=== PATIENT | male | born 2000 | race African-American/Black ===

== ENCOUNTER 2021-10-22 15:32 | Emergency (ER) | payer OTHER ==
[~2021-10-22] VITALS: Ht 175.3 cm; Wt 90.9 kg
[2021-10-22] MEDS ORDERED: HALOPERIDOL 5 MG TABLET PO ONE (16:45)
[2021-10-22] MEDS ORDERED: DiphenhydrAMINE HCL 25 MG CAPSULE PO ONE (16:45)
[2021-10-22] MEDS ORDERED: LORazepam 1 MG TABLET PO ONE (16:45)
[2021-10-22 17:38] LABS: AMPHET/METH SCREEN,URINE NEGATIVE (NEGATIVE); BARBITURATE SCREEN, URINE NEGATIVE (NEGATIVE); BENZODIAZEPINES SCREEN,URINE NEGATIVE (NEGATIVE); CANNABINOID SCREEN,URINE NEGATIVE (NEGATIVE); COCAINE SCREEN,URINE NEGATIVE (NEGATIVE); METHADONE SCREEN, URINE NEGATIVE (NEGATIVE); OPIATE SCREEN,URINE NEGATIVE (NEGATIVE)
[2021-10-22 17:39] LABS: PHENCYCLIDINE SCREEN,URINE NEGATIVE (NEGATIVE)
[2021-10-22 18:04] LABS: BASOPHILS % (AUTO) 0.5 % (0.0-2.0); EOSINOPHILS % (AUTO) 0.5 % (1.0-6.0); HEMATOCRIT 42.2 % (41-53); HEMOGLOBIN 14.3 g/dL (13.5-17.5); LYMPHOCYTES % (AUTO) 16.8 % (22.0-44.0); MEAN CORPUSCULAR HEMOGLOBIN 30.2 pg (26.0-34.0); MEAN CORPUSCULAR VOLUME 89 fL (80-100); MONOCYTES # (AUTO) 0.9 K/uL (0.1-1.0); MONOCYTES % (AUTO) 7.5 % (2.0-9.0); NEUTROPHILS # (AUTO) 8.9 K/uL (1.8-7.7); NEUTROPHILS % (AUTO) 74.7 % (40.0-70.0); PLATELET COUNT (AUTO) 224 K/uL (150-450); RED BLOOD CELL COUNT(AUTO) 4.74 MIL/uL (4.50-5.90); RED CELL DISTRIBUTION WIDTH 13.9 % (11.5-14.5)
[2021-10-22 18:19] LABS: ANION GAP 8 mmol/L (8-16); CALCIUM, TOTAL 9.3 mg/dL (8.8-10.5); CARBON DIOXIDE 28 mmol/L (22-29); CHLORIDE 104 mmol/L (98-107); CREATININE 1.08 mg/dL (0.60-1.30); GLOMERULAR FILTR. RATE CALC > 60 mL/min (>60); GLUCOSE,RANDOM 198 mg/dL (70-110); POTASSIUM 3.8 mmol/L (3.5-5.1); SODIUM SERUM 140 mmol/L (136-145); UREA NITROGEN, BLOOD 15 mg/dL (7-18)
[2021-10-22 18:25] LABS: ALANINE AMINOTRANSFERASE 57 U/L (12-78); ALKALINE PHOSPHATASE 89 U/L (46-116); ASPARTATE AMINOTRANSFERASE 40 U/L (15-37); BILIRUBIN,TOTAL 0.3 mg/dL (0.1-1.0); TOTAL PROTEIN, SERUM 8.1 g/dL (6.4-8.2)
[2021-10-22 18:46] VITALS: BP 116/81
== END 2021-10-22 18:45 | disposition home or self-care (01) ==
LOC: EMS 15:34
DX: F20.9 Schizophrenia, unspecified (principal); F19.10 Other psychoactive substance abuse, uncomplicated; Z76.0 Encounter for issue of repeat prescription; Z88.8 Allergy status to other drugs, medicaments and biological substances
CPT/HCPCS: 36415; 80053; 80307; 85025; 99284; G0480

== ENCOUNTER 2021-10-26 16:17 | Inpatient (IN) | payer MEDICAID, OTHER ==
[~2021-10-26] VITALS: Ht 175.3 cm; Wt 100.9 kg
[2021-10-26 17:47] LABS: BASOPHILS % (AUTO) 0.3 % (0.0-2.0); EOSINOPHILS % (AUTO) 0.1 % (1.0-6.0); HEMATOCRIT 42.1 % (41-53); HEMOGLOBIN 14.3 g/dL (13.5-17.5); LYMPHOCYTES # (AUTO) 1.5 K/uL (1.0-4.8); LYMPHOCYTES % (AUTO) 13.5 % (22.0-44.0); MEAN CORPUSCULAR HEMOGLOBIN 30.2 pg (26.0-34.0); MEAN CORPUSCULAR HGB CONC 33.8 G/dL (31.0-37.0); MEAN CORPUSCULAR VOLUME 89 fL (80-100); MONOCYTES # (AUTO) 0.9 K/uL (0.1-1.0); MONOCYTES % (AUTO) 7.6 % (2.0-9.0); NEUTROPHILS % (AUTO) 78.5 % (40.0-70.0); PLATELET COUNT (AUTO) 240 K/uL (150-450); RED BLOOD CELL COUNT(AUTO) 4.72 MIL/uL (4.50-5.90); RED CELL DISTRIBUTION WIDTH 13.7 % (11.5-14.5)
[2021-10-26 17:52] LABS: COVID AG,FIA SOURCE NASOPHARYNGEAL
[2021-10-26 18:01] LABS: ANION GAP 8 mmol/L (8-16); CALCIUM, TOTAL 9.2 mg/dL (8.8-10.5); CARBON DIOXIDE 28 mmol/L (22-29); CHLORIDE 104 mmol/L (98-107); CREATININE 0.92 mg/dL (0.60-1.30); GLOMERULAR FILTR. RATE CALC > 60 mL/min (>60); GLUCOSE,RANDOM 144 mg/dL (70-110); POTASSIUM 3.7 mmol/L (3.5-5.1); SODIUM SERUM 140 mmol/L (136-145); UREA NITROGEN, BLOOD 13 mg/dL (7-18)
[2021-10-26 18:08] LABS: ALANINE AMINOTRANSFERASE 48 U/L (12-78); ALBUMIN 4.2 g/dL (3.4-5.0); ALKALINE PHOSPHATASE 82 U/L (46-116); ASPARTATE AMINOTRANSFERASE 54 U/L (15-37); BILIRUBIN,TOTAL 0.4 mg/dL (0.1-1.0); TOTAL PROTEIN, SERUM 8.4 g/dL (6.4-8.2)
[2021-10-26 21:10] VITALS: BP 133/80
[2021-10-27 09:01] VITALS: BP 136/95
[2021-10-27] MEDS ORDERED: ALBUTEROL SULFATE HFA 90 MCG/PUFF 8 GM INHALER IH PRN (11:00)
[2021-10-27] MEDS ORDERED: ONDANSETRON HCL 4 MG TABLET PO PRN (11:00)
[2021-10-27] MEDS ORDERED: MAGNESIUM HYDROXIDE SUSPENSION 30 ML UDCUP PO PRN (11:00)
[2021-10-27] MEDS ORDERED: MAG HYDROX/AL HYDROX/SIMETH ES 30 ML SUSPENSION UDCUP PO PRN (11:00)
[2021-10-27] MEDS ORDERED: IBUPROFEN 400 MG TABLET PO PRN (11:00)
[2021-10-27] MEDS ORDERED: ACETAMINOPHEN 325 MG TABLET PO PRN (11:00)
[2021-10-27] MEDS ORDERED: LOPERAMIDE HCL 2 MG CAPSULE PO PRN (11:00)
[2021-10-27] MEDS ORDERED: CloNIDine HCL 0.1 MG TABLET PO PRN (11:00)
[2021-10-27] MEDS ORDERED: DOCUSATE SODIUM 100 MG CAPSULE PO PRN (11:00)
[2021-10-27] MEDS ORDERED: NICOTINE 14 MG/24 HOUR PATCH TD PRN (11:00)
[2021-10-27] MEDS ORDERED: PETROLATUM,WHITE 28 GM JELLY TP PRN (11:00)
[2021-10-27 17:00] VITALS: BP 125/83
[2021-10-27] MEDS: ZOLPIDEM TARTRATE 10 MG TABLET PO PRN (20:24)
[2021-10-27] MEDS: OLANZapine 5 MG TABLET PO SCH (20:24)
[2021-10-28] MEDS: OLANZapine 5 MG TABLET PO SCH ×2 (08:09→20:03)
[2021-10-28 10:30] VITALS: BP 148/95
[2021-10-28 18:00] VITALS: BP 126/84
[2021-10-29 09:00] VITALS: BP 110/79
[2021-10-29] MEDS: OLANZapine 5 MG TABLET PO SCH ×2 (09:00→20:29)
[2021-10-29 16:00] VITALS: BP 151/91
[2021-10-29] MEDS: ZOLPIDEM TARTRATE 10 MG TABLET PO PRN (20:29)
[2021-10-30 08:53] VITALS: BP 133/91
[2021-10-30] MEDS: OLANZapine 5 MG TABLET PO SCH ×2 (09:11→20:24)
[2021-10-30 16:54] VITALS: BP 150/83
[2021-10-30] MEDS: ZOLPIDEM TARTRATE 10 MG TABLET PO PRN (20:24)
[2021-10-31] MEDS: OLANZapine 5 MG TABLET PO SCH ×2 (08:25→20:07)
[2021-10-31 08:56] VITALS: BP 107/57
[2021-10-31 16:28] VITALS: BP 166/65
[2021-11-01 03:03] VITALS: BP 110/65
[2021-11-01 08:00] VITALS: BP 153/93
[2021-11-01 08:52] LABS: COVID AG,FIA SOURCE NASOPHARYNGEAL
[2021-11-01] MEDS: OLANZapine 5 MG TABLET PO SCH ×2 (08:52→20:25)
[2021-11-01 16:13] VITALS: BP 138/71
[2021-11-02 06:52] LABS: CHOL/HDL RATIO 3.4 (4.2-7.3)
[2021-11-02 08:00] VITALS: BP 143/77
[2021-11-02] MEDS: OLANZapine 5 MG TABLET PO SCH (08:07)
[2021-11-02 17:35] VITALS: BP 149/83
[2021-11-02] MEDS: OLANZapine 10 MG TABLET PO SCH (20:15)
[2021-11-02] MEDS: ZOLPIDEM TARTRATE 10 MG TABLET PO PRN (20:15)
[2021-11-03 08:54] VITALS: BP 146/97
[2021-11-03] MEDS: OLANZapine 5 MG TABLET PO SCH (09:38)
[2021-11-03 16:00] VITALS: BP 140/81
[2021-11-03] MEDS: OLANZapine 10 MG TABLET PO SCH (20:05)
[2021-11-04] MEDS: ZOLPIDEM TARTRATE 10 MG TABLET PO PRN ×2 (01:25→20:46)
[2021-11-04 01:29] VITALS: BP 122/64
[2021-11-04] MEDS: OLANZapine 5 MG TABLET PO SCH (09:09)
[2021-11-04 16:36] VITALS: BP 115/82
[2021-11-04] MEDS: OLANZapine 10 MG TABLET PO SCH (20:46)
[2021-11-05 08:00] VITALS: BP 158/90
[2021-11-05] MEDS: OLANZapine 5 MG TABLET PO SCH (08:30)
[2021-11-05 16:13] VITALS: BP 128/71
[2021-11-05] MEDS: LORazepam 2 MG TABLET PO PRN (16:50)
[2021-11-05] MEDS: ZOLPIDEM TARTRATE 10 MG TABLET PO PRN (20:10)
[2021-11-05] MEDS: OLANZapine 10 MG TABLET PO SCH (20:10)
[2021-11-06 08:00] VITALS: BP 113/67
[2021-11-06] MEDS: OLANZapine 5 MG TABLET PO SCH (09:26)
[2021-11-06] MEDS: LORazepam 2 MG TABLET PO PRN (13:00)
[2021-11-06 16:08] VITALS: BP 128/77
[2021-11-06] MEDS: OLANZapine 10 MG TABLET PO SCH (20:09)
[2021-11-07 07:55] VITALS: BP 148/84
[2021-11-07] MEDS: LORazepam 2 MG TABLET PO PRN ×2 (07:59→17:19)
[2021-11-07] MEDS: OLANZapine 10 MG TABLET PO SCH ×2 (07:59→20:03)
[2021-11-07] MEDS: OLANZapine 5 MG TABLET PO SCH (08:06)
[2021-11-07 11:34] VITALS: BP 158/86
[2021-11-07 16:08] VITALS: BP 145/85
[2021-11-08] MEDS: OLANZapine 5 MG TABLET PO SCH (08:18)
[2021-11-08 08:30] VITALS: BP 138/73
[2021-11-08 10:20] LABS: COVID AG,FIA SOURCE NASOPHARYNGEAL
[2021-11-08 12:05] VITALS: BP 139/83
[2021-11-08] MEDS: LORazepam 2 MG TABLET PO PRN (13:57)
[2021-11-08 16:56] VITALS: BP 122/70
[2021-11-08] MEDS: OLANZapine 10 MG TABLET PO SCH (20:25)
[2021-11-09] MEDS: LORazepam 2 MG TABLET PO PRN ×2 (03:19→18:54)
[2021-11-09] MEDS: OLANZapine 5 MG TABLET PO SCH (08:19)
[2021-11-09 09:28] VITALS: BP 155/82
[2021-11-09 16:05] VITALS: BP 152/101
[2021-11-09 18:54] VITALS: BP 149/89
[2021-11-09] MEDS: OLANZapine 10 MG TABLET PO SCH (20:43)
[2021-11-10] MEDS: OLANZapine 5 MG TABLET PO SCH (08:43)
[2021-11-10 09:00] VITALS: BP 151/85
[2021-11-10] MEDS: LORazepam 2 MG TABLET PO PRN (15:54)
[2021-11-10 16:18] VITALS: BP 148/87
[2021-11-10] MEDS: OLANZapine 10 MG TABLET PO SCH (20:34)
[2021-11-11] MEDS: OLANZapine 5 MG TABLET PO SCH (08:16)
[2021-11-11 09:00] VITALS: BP 144/104
[2021-11-11] MEDS ORDERED: TUBERCULIN, PURIFIED PROTEIN DERIVATIVE 5 TU/0.1 ML SYRINGE ID ONE (11:00)
[2021-11-11] MEDS: LORazepam 2 MG TABLET PO PRN ×2 (12:26→16:35)
[2021-11-11 16:27] VITALS: BP 130/79
[2021-11-11] MEDS: OLANZapine 10 MG TABLET PO SCH (20:19)
[2021-11-11] MEDS: ZOLPIDEM TARTRATE 10 MG TABLET PO PRN (20:19)
[2021-11-12 08:05] VITALS: BP 149/91
[2021-11-12 08:08] VITALS: BP 149/91
[2021-11-12] MEDS: OLANZapine 5 MG TABLET PO SCH (09:25)
[2021-11-12 16:00] VITALS: BP 149/78
[2021-11-12] MEDS: ZOLPIDEM TARTRATE 10 MG TABLET PO PRN (20:23)
[2021-11-12] MEDS: OLANZapine 10 MG TABLET PO SCH (20:23)
[2021-11-13 08:00] VITALS: BP 128/68
[2021-11-13] MEDS: OLANZapine 5 MG TABLET PO SCH (09:00)
[2021-11-13 16:07] VITALS: BP 144/82
[2021-11-13] MEDS: QUEtiapine FUMARATE 100 MG TABLET PO PRN (17:00)
[2021-11-13] MEDS: OLANZapine 10 MG TABLET PO SCH (20:29)
[2021-11-13] MEDS: ZOLPIDEM TARTRATE 10 MG TABLET PO PRN (20:48)
[2021-11-14] MEDS: OLANZapine 5 MG TABLET PO SCH (08:21)
[2021-11-14 08:32] LABS: BASOPHILS % (AUTO) 0.6 % (0.0-2.0); EOSINOPHILS % (AUTO) 1.6 % (1.0-6.0); HEMATOCRIT 42.3 % (41-53); HEMOGLOBIN 14.6 g/dL (13.5-17.5); LYMPHOCYTES % (AUTO) 27.6 % (22.0-44.0); MEAN CORPUSCULAR HEMOGLOBIN 30.9 pg (26.0-34.0); MEAN CORPUSCULAR HGB CONC 34.6 G/dL (31.0-37.0); MEAN CORPUSCULAR VOLUME 89 fL (80-100); MONOCYTES # (AUTO) 0.8 K/uL (0.1-1.0); NEUTROPHILS # (AUTO) 4.3 K/uL (1.8-7.7); NEUTROPHILS % (AUTO) 59.2 % (40.0-70.0); PLATELET COUNT (AUTO) 230 K/uL (150-450); RED BLOOD CELL COUNT(AUTO) 4.73 MIL/uL (4.50-5.90); RED CELL DISTRIBUTION WIDTH 13.8 % (11.5-14.5)
[2021-11-14 08:45] VITALS: BP 150/86
[2021-11-14 16:08] VITALS: BP 120/68
[2021-11-14] MEDS: OLANZapine 10 MG TABLET PO SCH (20:26)
[2021-11-15] MEDS: OLANZapine 5 MG TABLET PO SCH (08:23)
[2021-11-15 08:42] LABS: COVID AG,FIA SOURCE NASAL SWAB
[2021-11-15 09:40] VITALS: BP 153/101
[2021-11-15 16:24] VITALS: BP 130/74
[2021-11-15] MEDS: QUEtiapine FUMARATE 100 MG TABLET PO PRN (17:51)
[2021-11-15] MEDS: OLANZapine 10 MG TABLET PO SCH (20:14)
[2021-11-16 08:00] VITALS: BP 147/80
[2021-11-16] MEDS: OLANZapine 5 MG TABLET PO SCH (08:35)
[2021-11-16 16:21] VITALS: BP 140/92
[2021-11-16] MEDS: QUEtiapine FUMARATE 100 MG TABLET PO PRN (16:56)
[2021-11-16] MEDS: OLANZapine 10 MG TABLET PO SCH (20:14)
[2021-11-16] MEDS: ZOLPIDEM TARTRATE 10 MG TABLET PO PRN (20:14)
[2021-11-17 09:09] VITALS: BP 139/88
[2021-11-17] MEDS: OLANZapine 5 MG TABLET PO SCH (09:27)
[2021-11-17] MEDS: LORazepam 2 MG TABLET PO PRN ×2 (15:09→20:01)
[2021-11-17 16:00] VITALS: BP 146/91
[2021-11-17] MEDS: QUEtiapine FUMARATE 100 MG TABLET PO PRN (16:22)
[2021-11-17] MEDS: OLANZapine 10 MG TABLET PO SCH (20:01)
[2021-11-18 08:35] VITALS: BP 119/59
[2021-11-18] MEDS: OLANZapine 5 MG TABLET PO SCH (09:24)
[2021-11-18 16:00] VITALS: BP 142/66
[2021-11-18] MEDS: QUEtiapine FUMARATE 100 MG TABLET PO PRN (17:38)
[2021-11-18] MEDS: LORazepam 2 MG TABLET PO PRN (18:39)
[2021-11-18] MEDS: OLANZapine 10 MG TABLET PO SCH (20:02)
[2021-11-19] MEDS: OLANZapine 5 MG TABLET PO SCH (08:20)
[2021-11-19 08:21] VITALS: BP 126/74
[2021-11-19] MEDS: QUEtiapine FUMARATE 100 MG TABLET PO PRN ×2 (13:11→17:17)
[2021-11-19 16:08] VITALS: BP 137/80
[2021-11-19] MEDS: LORazepam 2 MG TABLET PO PRN (16:18)
[2021-11-19] MEDS: OLANZapine 10 MG TABLET PO SCH (20:14)
[2021-11-19] MEDS: ZOLPIDEM TARTRATE 10 MG TABLET PO PRN (20:14)
[2021-11-20] MEDS: OLANZapine 5 MG TABLET PO SCH (08:19)
[2021-11-20 08:44] VITALS: BP 121/73
[2021-11-20] MEDS: LORazepam 2 MG TABLET PO PRN (13:07)
[2021-11-20 16:00] VITALS: BP 128/74
[2021-11-20] MEDS: OLANZapine 10 MG TABLET PO SCH (20:57)
[2021-11-21] MEDS: OLANZapine 5 MG TABLET PO SCH (08:44)
[2021-11-21] MEDS: LORazepam 2 MG TABLET PO PRN (15:02)
[2021-11-21] MEDS: QUEtiapine FUMARATE 100 MG TABLET PO PRN (16:29)
[2021-11-21 16:34] VITALS: BP 131/88
[2021-11-21] MEDS: OLANZapine 10 MG TABLET PO SCH (20:04)
[2021-11-22] MEDS: OLANZapine 5 MG TABLET PO SCH (09:07)
[2021-11-22 10:35] VITALS: BP 152/98
[2021-11-22 13:09] LABS: COVID AG,FIA SOURCE NASOPHARYNGEAL
[2021-11-22 16:00] VITALS: BP 131/78
[2021-11-22] MEDS: OLANZapine 10 MG TABLET PO SCH (20:26)
[2021-11-23] MEDS: OLANZapine 5 MG TABLET PO SCH (09:05)
[2021-11-23 09:16] VITALS: BP 146/101
[2021-11-23 16:00] VITALS: BP 148/80
[2021-11-23] MEDS: LORazepam 2 MG TABLET PO PRN (17:07)
[2021-11-23] MEDS: OLANZapine 10 MG TABLET PO SCH (20:12)
[2021-11-23] MEDS: QUEtiapine FUMARATE 100 MG TABLET PO PRN (21:02)
[2021-11-24 08:03] VITALS: BP 158/81
[2021-11-24] MEDS: OLANZapine 5 MG TABLET PO SCH (09:51)
[2021-11-24 16:00] VITALS: BP 165/85
[2021-11-24] MEDS: QUEtiapine FUMARATE 100 MG TABLET PO PRN (16:30)
[2021-11-24] MEDS: OLANZapine 10 MG TABLET PO SCH (20:17)
[2021-11-24] MEDS: ZOLPIDEM TARTRATE 10 MG TABLET PO PRN (20:18)
[2021-11-25 00:55] VITALS: BP 148/99
[2021-11-25] MEDS: LORazepam 2 MG TABLET PO PRN (00:58)
[2021-11-25] MEDS: OLANZapine 5 MG TABLET PO SCH (07:55)
[2021-11-25 08:04] VITALS: BP 140/88
[2021-11-25 16:19] VITALS: BP 142/87
[2021-11-25] MEDS: QUEtiapine FUMARATE 100 MG TABLET PO PRN (19:00)
[2021-11-25] MEDS: OLANZapine 10 MG TABLET PO SCH (20:38)
[2021-11-25] MEDS: ZOLPIDEM TARTRATE 10 MG TABLET PO PRN (20:55)
[2021-11-26 08:13] VITALS: BP 124/78
[2021-11-26] MEDS: OLANZapine 5 MG TABLET PO SCH (08:39)
[2021-11-26 16:22] VITALS: BP 137/74
[2021-11-26] MEDS: OLANZapine 10 MG TABLET PO SCH (20:21)
[2021-11-27 08:08] VITALS: BP 166/86
[2021-11-27] MEDS: LORazepam 2 MG TABLET PO PRN (08:10)
[2021-11-27] MEDS: OLANZapine 5 MG TABLET PO SCH (08:11)
[2021-11-27 16:00] VITALS: BP 119/59
[2021-11-27] MEDS: QUEtiapine FUMARATE 100 MG TABLET PO PRN (17:33)
[2021-11-27] MEDS: OLANZapine 10 MG TABLET PO SCH (20:00)
[2021-11-28 08:02] VITALS: BP 148/76
[2021-11-28] MEDS: OLANZapine 5 MG TABLET PO SCH (10:26)
[2021-11-28 16:18] VITALS: BP 137/92
[2021-11-28] MEDS: QUEtiapine FUMARATE 100 MG TABLET PO PRN (16:30)
[2021-11-28] MEDS: OLANZapine 10 MG TABLET PO SCH (20:10)
[2021-11-28] MEDS: ZOLPIDEM TARTRATE 10 MG TABLET PO PRN (20:50)
[2021-11-29 08:27] LABS: COVID AG,FIA SOURCE NASAL SWAB
[2021-11-29] MEDS: LORazepam 2 MG TABLET PO PRN (08:31)
[2021-11-29] MEDS: OLANZapine 5 MG TABLET PO SCH (08:31)
[2021-11-29 16:00] VITALS: BP 133/64
[2021-11-29] MEDS: QUEtiapine FUMARATE 100 MG TABLET PO PRN (18:50)
[2021-11-29] MEDS: OLANZapine 10 MG TABLET PO SCH (20:15)
[2021-11-30] MEDS: OLANZapine 5 MG TABLET PO SCH (07:45)
[2021-11-30 09:13] VITALS: BP 161/99
[2021-11-30 16:21] VITALS: BP 130/79
[2021-11-30] MEDS: QUEtiapine FUMARATE 100 MG TABLET PO PRN (18:00)
[2021-11-30] MEDS: OLANZapine 10 MG TABLET PO SCH (20:00)
[2021-12-01 08:00] VITALS: BP 125/63
[2021-12-01] MEDS: OLANZapine 5 MG TABLET PO SCH (08:48)
[2021-12-01] MEDS: QUEtiapine FUMARATE 100 MG TABLET PO PRN (15:32)
[2021-12-01 16:06] VITALS: BP 143/89
[2021-12-01] MEDS: LORazepam 2 MG TABLET PO PRN (18:43)
[2021-12-01] MEDS: OLANZapine 10 MG TABLET PO SCH (20:27)
[2021-12-02] MEDS: OLANZapine 5 MG TABLET PO SCH (07:54)
[2021-12-02 16:09] VITALS: BP 145/90
[2021-12-02] MEDS: QUEtiapine FUMARATE 100 MG TABLET PO PRN (16:14)
[2021-12-02] MEDS: OLANZapine 10 MG TABLET PO SCH (20:06)
[2021-12-03 08:00] VITALS: BP 118/79
[2021-12-03] MEDS: OLANZapine 5 MG TABLET PO SCH (08:05)
[2021-12-03] MEDS: LORazepam 2 MG TABLET PO PRN ×2 (08:05→15:35)
[2021-12-03] MEDS: QUEtiapine FUMARATE 100 MG TABLET PO PRN (15:35)
[2021-12-03 16:22] VITALS: BP 132/83
[2021-12-03] MEDS: OLANZapine 10 MG TABLET PO SCH (20:19)
[2021-12-04 08:36] VITALS: BP 119/65
[2021-12-04] MEDS: OLANZapine 5 MG TABLET PO SCH (09:35)
[2021-12-04] MEDS: QUEtiapine FUMARATE 100 MG TABLET PO PRN (16:21)
[2021-12-04 16:25] VITALS: BP 145/79
[2021-12-04] MEDS: OLANZapine 10 MG TABLET PO SCH (20:55)
[2021-12-05 08:11] VITALS: BP 109/67
[2021-12-05] MEDS: OLANZapine 5 MG TABLET PO SCH (08:52)
[2021-12-05] MEDS: LORazepam 2 MG TABLET PO PRN (15:53)
[2021-12-05 16:16] VITALS: BP 134/89
[2021-12-05] MEDS: QUEtiapine FUMARATE 100 MG TABLET PO PRN (16:47)
[2021-12-05] MEDS: OLANZapine 10 MG TABLET PO SCH (20:44)
[2021-12-06 08:45] LABS: COVID AG,FIA SOURCE NASAL SWAB
[2021-12-06] MEDS: OLANZapine 5 MG TABLET PO SCH (08:49)
[2021-12-06] MEDS: QUEtiapine FUMARATE 100 MG TABLET PO PRN (15:45)
[2021-12-06] MEDS: LORazepam 2 MG TABLET PO PRN (15:45)
[2021-12-06 16:44] VITALS: BP 127/61
[2021-12-06] MEDS: ZOLPIDEM TARTRATE 10 MG TABLET PO PRN (20:06)
[2021-12-06] MEDS: OLANZapine 10 MG TABLET PO SCH (20:06)
[2021-12-07] MEDS: LORazepam 2 MG TABLET PO PRN (08:09)
[2021-12-07] MEDS: OLANZapine 5 MG TABLET PO SCH (08:09)
[2021-12-07 16:17] VITALS: BP 142/82
[2021-12-07] MEDS: QUEtiapine FUMARATE 100 MG TABLET PO PRN (17:40)
[2021-12-07] MEDS: OLANZapine 10 MG TABLET PO SCH (20:06)
[2021-12-08] MEDS: LORazepam 2 MG TABLET PO PRN ×2 (09:05→15:47)
[2021-12-08] MEDS: OLANZapine 5 MG TABLET PO SCH (09:05)
[2021-12-08] MEDS: QUEtiapine FUMARATE 100 MG TABLET PO PRN (15:47)
[2021-12-08 16:33] VITALS: BP 137/93
[2021-12-08] MEDS: OLANZapine 10 MG TABLET PO SCH (20:08)
[2021-12-09 08:00] VITALS: BP 99/56
[2021-12-09] MEDS: OLANZapine 5 MG TABLET PO SCH (09:28)
[2021-12-09] MEDS: QUEtiapine FUMARATE 100 MG TABLET PO PRN (15:45)
[2021-12-09] MEDS: LORazepam 2 MG TABLET PO PRN (15:45)
[2021-12-09] MEDS ORDERED: TUBERCULIN, PURIFIED PROTEIN DERIVATIVE 5 TU/0.1 ML SYRINGE ID ONE (16:15)
[2021-12-09 17:07] VITALS: BP 133/88
[2021-12-09] MEDS: OLANZapine 10 MG TABLET PO SCH (20:29)
[2021-12-10 08:01] VITALS: BP 128/75
[2021-12-10] MEDS: OLANZapine 5 MG TABLET PO SCH (08:08)
[2021-12-10] MEDS: QUEtiapine FUMARATE 100 MG TABLET PO PRN ×2 (08:08→15:34)
[2021-12-10] MEDS: LORazepam 2 MG TABLET PO PRN (15:34)
[2021-12-10 17:04] VITALS: BP 130/81
[2021-12-10] MEDS: OLANZapine 10 MG TABLET PO SCH (20:21)
[2021-12-11] MEDS: QUEtiapine FUMARATE 100 MG TABLET PO PRN ×2 (07:48→16:19)
[2021-12-11] MEDS: OLANZapine 5 MG TABLET PO SCH (07:48)
[2021-12-11] MEDS: LORazepam 2 MG TABLET PO PRN (07:48)
[2021-12-11 08:00] VITALS: BP 132/73
[2021-12-11 11:14] LABS: COVID AG,FIA SOURCE NASAL SWAB
[2021-12-11 16:04] VITALS: BP 108/72
[2021-12-11] MEDS: OLANZapine 10 MG TABLET PO SCH (20:26)
[2021-12-12 08:00] VITALS: BP 141/84
[2021-12-12] MEDS: OLANZapine 5 MG TABLET PO SCH (08:08)
[2021-12-12] MEDS: QUEtiapine FUMARATE 100 MG TABLET PO PRN ×2 (08:08→16:36)
[2021-12-12] MEDS: LORazepam 2 MG TABLET PO PRN (08:08)
[2021-12-12 16:04] VITALS: BP 130/82
[2021-12-12] MEDS: BACITRACIN 28 GM OINTMENT TP SCH (16:37)
[2021-12-12] MEDS: OLANZapine 10 MG TABLET PO SCH (20:40)
[2021-12-13] MEDS: OLANZapine 5 MG TABLET PO SCH (08:28)
[2021-12-13] MEDS: LORazepam 2 MG TABLET PO PRN (08:28)
[2021-12-13 09:29] VITALS: BP 152/103
[2021-12-13] MEDS: BACITRACIN 28 GM OINTMENT TP SCH ×2 (10:15→16:45)
[2021-12-13] MEDS: QUEtiapine FUMARATE 100 MG TABLET PO PRN (16:45)
[2021-12-13 17:13] VITALS: BP 136/94
[2021-12-13] MEDS: OLANZapine 10 MG TABLET PO SCH (20:24)
[2021-12-14] MEDS: OLANZapine 5 MG TABLET PO SCH (09:20)
[2021-12-14] MEDS: LORazepam 2 MG TABLET PO PRN ×2 (09:20→15:56)
[2021-12-14] MEDS: BACITRACIN 28 GM OINTMENT TP SCH ×2 (09:20→15:54)
[2021-12-14] MEDS: QUEtiapine FUMARATE 100 MG TABLET PO PRN ×2 (09:20→15:56)
[2021-12-14 16:00] VITALS: BP 121/73
[2021-12-14] MEDS: OLANZapine 10 MG TABLET PO SCH (20:36)
[2021-12-15 08:43] VITALS: BP 132/79
[2021-12-15] MEDS: OLANZapine 5 MG TABLET PO SCH (09:51)
[2021-12-15] MEDS: QUEtiapine FUMARATE 100 MG TABLET PO PRN ×2 (09:51→15:49)
[2021-12-15] MEDS: BACITRACIN 28 GM OINTMENT TP SCH ×2 (09:51→17:13)
[2021-12-15] MEDS: LORazepam 2 MG TABLET PO PRN (15:49)
[2021-12-15 16:00] VITALS: BP 139/83
[2021-12-15] MEDS: OLANZapine 10 MG TABLET PO SCH (20:03)
[2021-12-16] MEDS: OLANZapine 5 MG TABLET PO SCH ×3 (09:00→11:03)
[2021-12-16] MEDS: BACITRACIN 28 GM OINTMENT TP SCH ×3 (09:00→16:13)
[2021-12-16] MEDS: LORazepam 2 MG TABLET PO PRN ×3 (09:10→15:49)
[2021-12-16] MEDS: QUEtiapine FUMARATE 100 MG TABLET PO PRN ×3 (09:10→15:49)
[2021-12-16 16:48] VITALS: BP 134/82
[2021-12-16] MEDS: OLANZapine 10 MG TABLET PO SCH (20:08)
[2021-12-17] MEDS: LORazepam 2 MG TABLET PO PRN (08:39)
[2021-12-17] MEDS: OLANZapine 5 MG TABLET PO SCH (08:39)
[2021-12-17] MEDS: BACITRACIN 28 GM OINTMENT TP SCH (09:00)
[2021-12-17] MEDS ORDERED: OLAN10 PO (09:54)
[2021-12-17] MEDS ORDERED: OLAN5TAB52 PO (09:54)
== END 2021-12-17 11:15 | disposition home or self-care (01) | DRG 750 ==
LOC: EMS 16:17 → 3EI 20:00 → 3EC 11-23 21:00
PROVIDERS: ADMIT Psychiatry & Neurology Psychiatry; ATTEND Psychiatry & Neurology Psychiatry
DX: F25.0 Schizoaffective disorder, bipolar type (principal); D72.829 Elevated white blood cell count, unspecified; F17.200 Nicotine dependence, unspecified, uncomplicated; R45.851 Suicidal ideations; Z59.00 Homelessness unspecified; Z91.52 Personal history of nonsuicidal self-harm; Z71.6 Tobacco abuse counseling; Z88.8 Allergy status to other drugs, medicaments and biological substances
CPT/HCPCS: 80053; 80061; 83036; 85025; 99285; G0480

== ENCOUNTER 2022-04-12 00:18 | Emergency (ER) | payer MEDICAID, OTHER ==
[~2022-04-12] VITALS: Ht 170.2 cm; Wt 222.6 kg
[~2022-04-12 00:18] MED LIST: OLAN10 PO; OLAN5TAB52 PO
[2022-04-12 02:32] LABS: AMPHET/METH SCREEN,URINE NEGATIVE (NEGATIVE); BARBITURATE SCREEN, URINE NEGATIVE (NEGATIVE); BENZODIAZEPINES SCREEN,URINE NEGATIVE (NEGATIVE); CANNABINOID SCREEN,URINE NEGATIVE (NEGATIVE); COCAINE SCREEN,URINE NEGATIVE (NEGATIVE); METHADONE SCREEN, URINE NEGATIVE (NEGATIVE); OPIATE SCREEN,URINE NEGATIVE (NEGATIVE)
[2022-04-12 02:33] LABS: PHENCYCLIDINE SCREEN,URINE NEGATIVE (NEGATIVE)
[2022-04-12 02:38] VITALS: BP 150/90
[2022-04-12 03:02] LABS: BASOPHILS % (AUTO) 0.5 % (0.0-2.0); EOSINOPHILS % (AUTO) 0.2 % (1.0-6.0); HEMATOCRIT 41.2 % (41-53); HEMOGLOBIN 14.5 g/dL (13.5-17.5); LYMPHOCYTES # (AUTO) 2.1 K/uL (1.0-4.8); LYMPHOCYTES % (AUTO) 19.8 % (22.0-44.0); MEAN CORPUSCULAR HEMOGLOBIN 30.5 pg (26.0-34.0); MEAN CORPUSCULAR HGB CONC 35.3 G/dL (31.0-37.0); MEAN CORPUSCULAR VOLUME 87 fL (80-100); MONOCYTES # (AUTO) 0.9 K/uL (0.1-1.0); MONOCYTES % (AUTO) 8.7 % (2.0-9.0); NEUTROPHILS # (AUTO) 7.6 K/uL (1.8-7.7); NEUTROPHILS % (AUTO) 70.8 % (40.0-70.0); PLATELET COUNT (AUTO) 240 K/uL (150-450); RED BLOOD CELL COUNT(AUTO) 4.77 MIL/uL (4.50-5.90); RED CELL DISTRIBUTION WIDTH 13.8 % (11.5-14.5)
[2022-04-12 03:11] LABS: ANION GAP 11 mmol/L (8-16); CALCIUM, TOTAL 9.1 mg/dL (8.8-10.5); CARBON DIOXIDE 27 mmol/L (22-29); CHLORIDE 103 mmol/L (98-107); CREATININE 0.94 mg/dL (0.60-1.30); GLOMERULAR FILTR. RATE CALC > 60 mL/min (>60); GLUCOSE,RANDOM 126 mg/dL (70-110); POTASSIUM 3.6 mmol/L (3.5-5.1); SODIUM SERUM 141 mmol/L (136-145); UREA NITROGEN, BLOOD 7 mg/dL (7-18)
[2022-04-12] MEDS ORDERED: LORazepam 1 MG TABLET PO ONE (03:15)
[2022-04-12] MEDS ORDERED: OLANZapine 5 MG TABLET PO ONE (03:15)
[2022-04-12 03:17] LABS: ALANINE AMINOTRANSFERASE 33 U/L (12-78); ALBUMIN 4.2 g/dL (3.4-5.0); ALKALINE PHOSPHATASE 87 U/L (46-116); ASPARTATE AMINOTRANSFERASE 30 U/L (15-37); BILIRUBIN,TOTAL 0.3 mg/dL (0.1-1.0); TOTAL PROTEIN, SERUM 8.2 g/dL (6.4-8.2)
== END 2022-04-12 06:37 | disposition home or self-care (01) ==
LOC: EMS 00:18
DX: F20.9 Schizophrenia, unspecified (principal); F14.10 Cocaine abuse, uncomplicated; Z88.8 Allergy status to other drugs, medicaments and biological substances; Z79.899 Other long term (current) drug therapy
CPT/HCPCS: 36415; 80053; 80307; 85025; 99283; G0480

== ENCOUNTER 2022-07-15 18:54 | Emergency (ER) | payer OTHER ==
[~2022-07-15] VITALS: Ht 180.3 cm; Wt 100.0 kg
[2022-07-15] MEDS ORDERED: HALOPERIDOL 5 MG TABLET PO ONE (19:15)
[2022-07-15 19:31] LABS: COVID AG,FIA SOURCE NASOPHARYNGEAL
[2022-07-15 19:34] LABS: EOSINOPHILS % (AUTO) 0.2 % (1.0-6.0); HEMATOCRIT 41.3 % (41-53); HEMOGLOBIN 14.3 g/dL (13.5-17.5); LYMPHOCYTES # (AUTO) 1.4 K/uL (1.0-4.8); LYMPHOCYTES % (AUTO) 13.5 % (22.0-44.0); MEAN CORPUSCULAR HEMOGLOBIN 30.2 pg (26.0-34.0); MEAN CORPUSCULAR HGB CONC 34.5 G/dL (31.0-37.0); MEAN CORPUSCULAR VOLUME 87 fL (80-100); MONOCYTES # (AUTO) 0.7 K/uL (0.1-1.0); MONOCYTES % (AUTO) 6.1 % (2.0-9.0); NEUTROPHILS # (AUTO) 8.5 K/uL (1.8-7.7); NEUTROPHILS % (AUTO) 79.2 % (40.0-70.0); PLATELET COUNT (AUTO) 287 K/uL (150-450); RED BLOOD CELL COUNT(AUTO) 4.73 MIL/uL (4.50-5.90); RED CELL DISTRIBUTION WIDTH 13.9 % (11.5-14.5)
[2022-07-15 19:42] LABS: ANION GAP 12 mmol/L (8-16); CALCIUM, TOTAL 9.1 mg/dL (8.8-10.5); CARBON DIOXIDE 27 mmol/L (22-29); CHLORIDE 103 mmol/L (98-107); CREATININE 0.99 mg/dL (0.60-1.30); GLOMERULAR FILTR. RATE CALC > 60 mL/min (>60); GLUCOSE,RANDOM 117 mg/dL (70-110); POTASSIUM 3.8 mmol/L (3.5-5.1); SODIUM SERUM 142 mmol/L (136-145); UREA NITROGEN, BLOOD 8 mg/dL (7-18)
[2022-07-15 19:53] LABS: ALANINE AMINOTRANSFERASE 37 U/L (12-78); ALBUMIN 4.1 g/dL (3.4-5.0); ALKALINE PHOSPHATASE 121 U/L (46-116); ASPARTATE AMINOTRANSFERASE 27 U/L (15-37); BILIRUBIN,TOTAL 0.3 mg/dL (0.1-1.0); TOTAL PROTEIN, SERUM 8.2 g/dL (6.4-8.2)
[2022-07-15] MEDS ORDERED: LORazepam 2 MG TABLET PO ONE (23:15)
[2022-07-16 02:15] VITALS: BP 128/77
== END 2022-07-16 03:25 | disposition home or self-care (01) ==
LOC: EMS 19:05
DX: F25.9 Schizoaffective disorder, unspecified (principal); F15.10 Other stimulant abuse, uncomplicated; Z88.8 Allergy status to other drugs, medicaments and biological substances; Z20.822 Contact with and (suspected) exposure to COVID-19
CPT/HCPCS: 99284; 87426; 80053; 85025; 36415; G0480

== ENCOUNTER 2022-08-20 12:41 | Inpatient (IN) | payer OTHER ==
[~2022-08-20] VITALS: Ht 172.7 cm; Wt 101.4 kg
[~2022-08-20 12:41] MED LIST changes: +FentaNYL CITRATE PF 100 MCG/2 ML VIAL IVP ONE; +LIDOCAINE/PF 2% 5 ML VIAL IM ONE; +MIDAZOLAM HCL 2 MG/2 ML VIAL IVP ONE; +ONDANSETRON HCL 4 MG/2 ML VIAL IVP ONE; +PROPOFOL 1% 20 ML VIAL IVP ONE; +SUCCINYLCHOLINE CHLORIDE 20 MG/ML 10 ML VIAL IVP ONE
[2022-08-20] MEDS ORDERED: KETOROLAC TROMETHAMINE 30 MG/ML VIAL IVP ONE (14:15)
[2022-08-20] MEDS ORDERED: ONDANSETRON HCL 4 MG/2 ML VIAL IVP ONE (14:15)
[2022-08-20] MEDS ORDERED: SODIUM CHLORIDE 0.9% 1,000 ML IV ONE (14:15)
[2022-08-20 14:20] LABS: APPEARANCE,URINE CLEAR (CLEAR); BILIRUBIN,URINE NEGATIVE (NEGATIVE); GLUCOSE, URINE (UA) NEGATIVE (NEGATIVE); KETONES,URINE NEGATIVE (NEGATIVE); LEUKOCYTE ESTERASE ,URINE NEGATIVE (NEGATIVE); NITRATE,URINE NEGATIVE (NEGATIVE); OCCULT BLOOD,URINE NEGATIVE (NEGATIVE); PROTEIN,URINE NEGATIVE (NEGATIVE); SPECIFIC GRAVITIY, URINE 1.011 (1.003-1.030); UROBILINOGEN,URINE <=1.0 mg/dL (<=1.0)
[2022-08-20 14:22] LABS: BASOPHILS % (AUTO) 0.2 % (0.0-2.0); EOSINOPHILS % (AUTO) 0.3 % (1.0-6.0); HEMATOCRIT 44.7 % (41-53); HEMOGLOBIN 14.9 g/dL (13.5-17.5); LYMPHOCYTES # (AUTO) 1.5 K/uL (1.0-4.8); LYMPHOCYTES % (AUTO) 8.5 % (22.0-44.0); MEAN CORPUSCULAR HEMOGLOBIN 30.1 pg (26.0-34.0); MEAN CORPUSCULAR HGB CONC 33.4 G/dL (31.0-37.0); MEAN CORPUSCULAR VOLUME 90 fL (80-100); MONOCYTES # (AUTO) 1.7 K/uL (0.1-1.0); MONOCYTES % (AUTO) 9.6 % (2.0-9.0); NEUTROPHILS # (AUTO) 14.4 K/uL (1.8-7.7); NEUTROPHILS % (AUTO) 81.4 % (40.0-70.0); PLATELET COUNT (AUTO) 253 K/uL (150-450); RED BLOOD CELL COUNT(AUTO) 4.95 MIL/uL (4.50-5.90); RED CELL DISTRIBUTION WIDTH 13.9 % (11.5-14.5)
[2022-08-20 14:32] LABS: ANION GAP 5 mmol/L (8-16); CALCIUM, TOTAL 9.4 mg/dL (8.8-10.5); CARBON DIOXIDE 32 mmol/L (22-29); CHLORIDE 103 mmol/L (98-107); CREATININE 0.93 mg/dL (0.60-1.30); GLUCOSE,RANDOM 94 mg/dL (70-110); POTASSIUM 3.7 mmol/L (3.5-5.1); SODIUM SERUM 140 mmol/L (136-145); UREA NITROGEN, BLOOD 7 mg/dL (7-18)
[2022-08-20 14:36] LABS: GLOMERULAR FILTR. RATE CALC > 60 mL/min (>60)
[2022-08-20 14:38] LABS: ALANINE AMINOTRANSFERASE 28 U/L (12-78); ALBUMIN 4.2 g/dL (3.4-5.0); ALKALINE PHOSPHATASE 100 U/L (46-116); ASPARTATE AMINOTRANSFERASE 26 U/L (15-37); BILIRUBIN,TOTAL 0.3 mg/dL (0.1-1.0); LIPASE 69 U/L (73-393); TOTAL PROTEIN, SERUM 8.3 g/dL (6.4-8.2)
[2022-08-20] MEDS ORDERED: HALOPERIDOL 5 MG TABLET PO ONE (15:45)
[2022-08-20] MEDS ORDERED: PIPERACILLIN/TAZO 3.375 GM/D5W 50 ML IV ONE (15:45)
[2022-08-20 16:49] LABS: COVID AG,FIA SOURCE NASOPHARYNGEAL
[2022-08-20] MEDS ORDERED: MORPHINE SULFATE 4 MG/ML SYRINGE IVP PRN (18:30)
[2022-08-20] MEDS ORDERED: ONDANSETRON HCL 4 MG/2 ML VIAL IVP PRN ×2 (18:30→19:45)
[2022-08-20] MEDS ORDERED: BUPIVACAINE 0.25%/EPI 1:200,000/PF 10 ML VIAL ONE (19:09)
[2022-08-20] MEDS ORDERED: SODIUM CHLORIDE 0.9% 1,000 ML ONE (19:09)
[2022-08-20] MEDS ORDERED: ACETAMINOPHEN 325 MG TABLET PO PRN (19:45)
[2022-08-20] MEDS ORDERED: MORPHINE SULFATE 10 MG/ML VIAL IVP PRN (19:45)
[2022-08-20] MEDS ORDERED: RINGERS SOLUTION,LACTATED 1,000 ML IV ONE (19:52)
[2022-08-20] MEDS ORDERED: FentaNYL CITRATE PF 100 MCG/2 ML VIAL IVP PRN (20:00)
[2022-08-20] MEDS ORDERED: HYDROmorphone 2 MG/ML VIAL IVP PRN (20:00)
[2022-08-20] MEDS ORDERED: OXYGEN THERAPY IH SCH (20:00)
[2022-08-20] MEDS ORDERED: BUPIVACAINE HCL/PF 0.25% 30 ML VIAL PERC ONE (20:20)
[2022-08-20] MEDS ORDERED: SUGAMMADEX SODIUM 200 MG/2 ML VIAL IVP ONE (20:33)
[2022-08-20 22:01] VITALS: BP 129/77
[2022-08-20] MEDS ORDERED: MORPHINE SULFATE 2 MG/ML SYRINGE IVP PRN (22:03)
[2022-08-20] MEDS: RINGERS SOLUTION,LACTATED 1,000 ML IV SCH (22:07)
[2022-08-20] MEDS ORDERED: SODIUM CHLORIDE 0.9% 500 ML IV ONE (22:14)
[2022-08-21] MEDS: PIPERACILLIN/TAZO 3.375 GM/D5W 50 ML IV SCH ×3 (00:40→12:00)
[2022-08-21 04:00] VITALS: BP 139/79
[2022-08-21] MEDS: RINGERS SOLUTION,LACTATED 1,000 ML IV SCH (05:45)
[2022-08-21 08:06] VITALS: BP 149/81
[2022-08-21] MEDS ORDERED: AMOX1TAB16 PO (09:48)
[2022-08-22] MEDS ORDERED: HEPARIN SODIUM,PORCINE 5,000 UNITS/ML VIAL SQ SCH
== END 2022-08-22 00:27 | disposition home or self-care (01) | DRG 710 ==
LOC: EMS 12:43 → 6S 21:43
PROVIDERS: ADMIT Internal Medicine; ATTEND Internal Medicine
PROC: 0DTJ4ZZ Resection of Appendix, Percutaneous Endoscopic Approach (ICD-10-PCS; principal; 2022-08-20 19:30)
DX: A41.9 Sepsis, unspecified organism (principal); F25.9 Schizoaffective disorder, unspecified; K35.80 Unspecified acute appendicitis; Z20.822 Contact with and (suspected) exposure to COVID-19; Z88.8 Allergy status to other drugs, medicaments and biological substances
CPT/HCPCS: 74176; 80053; 81003; 83605; 83690; 85025; 87040; 87081; 99285; J0330; J1885; J2250; J2270; J2405; J2543; J2704; J3010; J3490; J7030; J7040; J7120; Q9967

== ENCOUNTER 2023-06-06 13:27 | Emergency (ER) | payer OTHER ==
[~2023-06-06] VITALS: Ht 180.3 cm; Wt 97.7 kg
[~2023-06-06 13:27] MED LIST changes: +AMOX1TAB16 PO; -FentaNYL CITRATE PF 100 MCG/2 ML VIAL IVP ONE; -LIDOCAINE/PF 2% 5 ML VIAL IM ONE; -MIDAZOLAM HCL 2 MG/2 ML VIAL IVP ONE; -ONDANSETRON HCL 4 MG/2 ML VIAL IVP ONE; -PROPOFOL 1% 20 ML VIAL IVP ONE; -SUCCINYLCHOLINE CHLORIDE 20 MG/ML 10 ML VIAL IVP ONE
[2023-06-06] MEDS ORDERED: PALI234D IM (13:30)
[2023-06-06] MEDS ORDERED: CLONIDINE PO (13:30)
[2023-06-06 13:31] VITALS: TEMP 98.5
[2023-06-06 15:49] LABS: BASOPHILS % (AUTO) 0.5 % (0.0-2.0); HEMATOCRIT 42.9 % (41-53); HEMOGLOBIN 14.4 g/dL (13.5-17.5); LYMPHOCYTES # (AUTO) 2.2 K/uL (1.0-4.8); LYMPHOCYTES % (AUTO) 24.6 % (22.0-44.0); MEAN CORPUSCULAR HEMOGLOBIN 30.3 pg (26.0-34.0); MEAN CORPUSCULAR HGB CONC 33.7 G/dL (31.0-37.0); MEAN CORPUSCULAR VOLUME 90 fL (80-100); MONOCYTES # (AUTO) 0.7 K/uL (0.1-1.0); MONOCYTES % (AUTO) 7.7 % (2.0-9.0); NEUTROPHILS # (AUTO) 5.8 K/uL (1.8-7.7); NEUTROPHILS % (AUTO) 65.2 % (40.0-70.0); PLATELET COUNT (AUTO) 282 K/uL (150-450); RED BLOOD CELL COUNT(AUTO) 4.76 MIL/uL (4.50-5.90); RED CELL DISTRIBUTION WIDTH 14.2 % (11.5-14.5)
[2023-06-06 15:56] LABS: ANION GAP 9 mmol/L (8-16); CALCIUM, TOTAL 9.3 mg/dL (8.8-10.5); CARBON DIOXIDE 29 mmol/L (22-29); CHLORIDE 101 mmol/L (98-107); GLOMERULAR FILTR. RATE CALC > 60 mL/min (>60); GLUCOSE,RANDOM 107 mg/dL (70-110); POTASSIUM 3.7 mmol/L (3.5-5.1); SODIUM SERUM 139 mmol/L (136-145)
[2023-06-06 16:02] LABS: ALANINE AMINOTRANSFERASE 29 U/L (12-78); ALBUMIN 4.2 g/dL (3.4-5.0); ALKALINE PHOSPHATASE 91 U/L (46-116); ASPARTATE AMINOTRANSFERASE 31 U/L (15-37); BILIRUBIN,TOTAL 0.3 mg/dL (0.1-1.0); TOTAL PROTEIN, SERUM 8.1 g/dL (6.4-8.2)
[2023-06-06 16:57] LABS: COVID AG,FIA SOURCE NASOPHARYNGEAL
[2023-06-06 18:07] LABS: AMPHET/METH SCREEN,URINE NEGATIVE (NEGATIVE); BARBITURATE SCREEN, URINE NEGATIVE (NEGATIVE); BENZODIAZEPINES SCREEN,URINE NEGATIVE (NEGATIVE); CANNABINOID SCREEN,URINE NEGATIVE (NEGATIVE); COCAINE SCREEN,URINE NEGATIVE (NEGATIVE); METHADONE SCREEN, URINE NEGATIVE (NEGATIVE); OPIATE SCREEN,URINE NEGATIVE (NEGATIVE); PHENCYCLIDINE SCREEN,URINE NEGATIVE (NEGATIVE)
[2023-06-06 18:19] VITALS: BP 117/82; PULSE 77; RESP 18
== END 2023-06-06 18:19 | disposition home or self-care (01) ==
LOC: EMS 13:31
DX: F25.0 Schizoaffective disorder, bipolar type (principal); F12.90 Cannabis use, unspecified, uncomplicated; Z88.8 Allergy status to other drugs, medicaments and biological substances; Z20.822 Contact with and (suspected) exposure to COVID-19
CPT/HCPCS: 99285; 87426; 80053; 85025; 36415; 80307; G0480

== ENCOUNTER 2023-08-03 05:46 | Emergency (ER) | payer OTHER ==
[~2023-08-03] VITALS: Ht 175.3 cm; Wt 91.0 kg
[~2023-08-03 05:46] MED LIST changes: -AMOX1TAB16 PO; +CLONIDINE PO; -OLAN5TAB52 PO; +PALI234D IM
[2023-08-03 06:03] VITALS: TEMP 98.7
[2023-08-03 06:48] LABS: BASOPHILS % (AUTO) 0.7 % (0.0-2.0); EOSINOPHILS % (AUTO) 1.9 % (1.0-6.0); HEMATOCRIT 40.8 % (41-53); HEMOGLOBIN 13.9 g/dL (13.5-17.5); LYMPHOCYTES # (AUTO) 2.1 K/uL (1.0-4.8); LYMPHOCYTES % (AUTO) 18.8 % (22.0-44.0); MEAN CORPUSCULAR HEMOGLOBIN 30.6 pg (26.0-34.0); MEAN CORPUSCULAR HGB CONC 34.1 G/dL (31.0-37.0); MEAN CORPUSCULAR VOLUME 90 fL (80-100); MONOCYTES # (AUTO) 0.9 K/uL (0.1-1.0); MONOCYTES % (AUTO) 7.9 % (2.0-9.0); NEUTROPHILS # (AUTO) 7.9 K/uL (1.8-7.7); NEUTROPHILS % (AUTO) 70.7 % (40.0-70.0); PLATELET COUNT (AUTO) 267 K/uL (150-450); RED BLOOD CELL COUNT(AUTO) 4.56 MIL/uL (4.50-5.90); WHITE BLOOD COUNT (AUTO) 11.2 K/uL (4.5-11.0)
[2023-08-03 07:08] LABS: ALCOHOL, URINE DRUG SCREEN NEGATIVE (NEGATIVE); AMPHET/METH SCREEN,URINE NEGATIVE (NEGATIVE); BARBITURATE SCREEN, URINE NEGATIVE (NEGATIVE); BENZODIAZEPINES SCREEN,URINE NEGATIVE (NEGATIVE); CANNABINOID SCREEN,URINE NEGATIVE (NEGATIVE); COCAINE SCREEN,URINE NEGATIVE (NEGATIVE); METHADONE SCREEN, URINE NEGATIVE (NEGATIVE); OPIATE SCREEN,URINE NEGATIVE (NEGATIVE); PHENCYCLIDINE SCREEN,URINE NEGATIVE (NEGATIVE)
[2023-08-03 07:11] LABS: ALCOHOL, BLOOD (SERUM) < 3 mg/dL (0-10)
[2023-08-03 07:13] LABS: ANION GAP 10 mmol/L (8-16); CARBON DIOXIDE 28 mmol/L (22-29); CHLORIDE 100 mmol/L (98-107); CREATININE 0.84 mg/dL (0.60-1.30); GLOMERULAR FILTR. RATE CALC > 60 mL/min (>60); GLUCOSE,RANDOM 103 mg/dL (70-110); POTASSIUM 3.6 mmol/L (3.5-5.1); SODIUM SERUM 138 mmol/L (136-145); UREA NITROGEN, BLOOD 7 mg/dL (7-18)
[2023-08-03 07:19] LABS: ALANINE AMINOTRANSFERASE 16 U/L (12-78); ALBUMIN 4.1 g/dL (3.4-5.0); ALKALINE PHOSPHATASE 96 U/L (46-116); ASPARTATE AMINOTRANSFERASE 37 U/L (15-37); BILIRUBIN,TOTAL 0.4 mg/dL (0.1-1.0)
[2023-08-03] MEDS ORDERED: CARB1DRO24 OU (08:01)
[2023-08-03 08:17] VITALS: BP 146/88; PULSE 89; RESP 17
== END 2023-08-03 08:21 | disposition home or self-care (01) ==
LOC: EMS 05:47
DX: H10.13 Acute atopic conjunctivitis, bilateral (principal); F12.20 Cannabis dependence, uncomplicated; F20.9 Schizophrenia, unspecified; Z88.8 Allergy status to other drugs, medicaments and biological substances
CPT/HCPCS: 99283; 80053; 85025; 36415; 80307; G0480

== ENCOUNTER 2024-01-13 13:56 | Inpatient (IN) | payer MEDICAID ==
[~2024-01-13 13:56] MED LIST changes: +CARB1DRO24 OU
[2024-01-13] MEDS ORDERED: HALOPERIDOL 5 MG TABLET PO PRN (17:30)
[2024-01-13] MEDS ORDERED: CLON0.1T2 PO (17:37)
[2024-01-13] MEDS ORDERED: OLAN10TA74 PO (17:37)
[2024-01-13 18:01] VITALS: BP 142/78; PULSE 99; RESP 18; TEMP 98; O2SAT 98
[2024-01-13] MEDS ORDERED: INFLUENZA VIRUS VACCINE QVS 2023-24 (6MO+)/PF 60 MCG/0.5 ML SYRINGE IM. ONE (18:45)
[2024-01-13 19:44] VITALS: BP 139/80; RESP 18; TEMP 98.2
[2024-01-14] MEDS ORDERED: MAG HYDROX/ALUMINUM HYD/SIMETH ES 30 ML SUSPENSION UDCUP PO PRN (06:45)
[2024-01-14] MEDS ORDERED: OMEPRAZOLE 20 MG CAPSULE PO PRN (06:45)
[2024-01-14] MEDS ORDERED: ONDANSETRON HCL 4 MG TABLET PO PRN (06:45)
[2024-01-14] MEDS ORDERED: ACETAMINOPHEN 325 MG TABLET PO PRN (06:45)
[2024-01-14] MEDS ORDERED: BENZOCAINE/MENTHOL LOZENGE PO PRN (06:45)
[2024-01-14] MEDS ORDERED: PETROLATUM,WHITE 28 GM JELLY TP PRN (06:45)
[2024-01-14] MEDS ORDERED: LOPERAMIDE HCL 2 MG CAPSULE PO PRN (06:45)
[2024-01-14] MEDS ORDERED: BACITRACIN 28 GM OINTMENT TP PRN (06:45)
[2024-01-14] MEDS ORDERED: IBUPROFEN 600 MG TABLET PO PRN (06:45)
[2024-01-14] MEDS ORDERED: ALBUTEROL SULFATE HFA 90 MCG/PUFF 8 GM INHALER IH PRN (06:45)
[2024-01-14] MEDS ORDERED: DOCUSATE SODIUM 100 MG CAPSULE PO PRN (06:45)
[2024-01-14] MEDS ORDERED: CloNIDine HCL 0.1 MG TABLET PO PRN (06:45)
[2024-01-14] MEDS ORDERED: MAGNESIUM HYDROXIDE SUSPENSION 30 ML UDCUP PO PRN (06:45)
[2024-01-14 08:24] VITALS: RESP 18
[2024-01-14] MEDS: NICOTINE 14 MG/24 HOUR PATCH TD SCH (08:39)
[2024-01-14] MEDS: LORazepam 2 MG TABLET PO PRN (16:11)
[2024-01-14] MEDS: DIVALPROEX SODIUM 500 MG DR TABLET PO SCH (16:11)
[2024-01-14] MEDS: OLANZapine 5 MG TABLET PO SCH (20:43)
[2024-01-14] MEDS: ZOLPIDEM TARTRATE 10 MG TABLET PO PRN (20:43)
[2024-01-14 22:38] VITALS: BP 116/62; PULSE 98; RESP 18; TEMP 97.8
[2024-01-15 08:45] VITALS: BP 137/74; PULSE 91; RESP 17; TEMP 97.6; O2SAT 100
[2024-01-15 21:02] VITALS: BP 144/76; PULSE 102; RESP 20; TEMP 98.2; O2SAT 100
[2024-01-16 08:12] LABS: APPEARANCE,URINE HAZY (CLEAR); BILIRUBIN,URINE NEGATIVE (NEGATIVE); COLOR,URINE LIGHT YELLOW (YELLOW); GLUCOSE, URINE (UA) NEGATIVE (NEGATIVE); KETONES,URINE TRACE mg/dL (NEGATIVE); LEUKOCYTE ESTERASE ,URINE NEGATIVE (NEGATIVE); NITRATE,URINE NEGATIVE (NEGATIVE); OCCULT BLOOD,URINE NEGATIVE (NEGATIVE); PH,URINE 7.5 (5.0-8.0); PH,URINE DRUG SCREEN 7.5 (5.0-8.0); PROTEIN,URINE NEGATIVE (NEGATIVE); SPECIFIC GRAVITIY, URINE 1.022 (1.003-1.030); UROBILINOGEN,URINE <=1.0 mg/dL (<=1.0)
[2024-01-16 08:19] LABS: ALCOHOL, URINE DRUG SCREEN NEGATIVE (NEGATIVE); AMPHET/METH SCREEN,URINE NEGATIVE (NEGATIVE); BARBITURATE SCREEN, URINE NEGATIVE (NEGATIVE); BENZODIAZEPINES SCREEN,URINE NEGATIVE (NEGATIVE); CANNABINOID SCREEN,URINE NEGATIVE (NEGATIVE); COCAINE SCREEN,URINE NEGATIVE (NEGATIVE); METHADONE SCREEN, URINE NEGATIVE (NEGATIVE); OPIATE SCREEN,URINE NEGATIVE (NEGATIVE); PHENCYCLIDINE SCREEN,URINE NEGATIVE (NEGATIVE)
[2024-01-16] MEDS ORDERED: DIVA-112 PO (15:11)
[2024-01-16] MEDS ORDERED: OLAN5TAB52 PO (15:13)
== END 2024-01-16 18:41 | disposition home or self-care (01) | DRG 750 ==
LOC: B3A 17:35
PROVIDERS: ADMIT Psychiatry & Neurology Psychiatry; ATTEND Psychiatry & Neurology Psychiatry
DX: F25.9 Schizoaffective disorder, unspecified (principal); F10.90 Alcohol use, unspecified, uncomplicated; F32.A Depression, unspecified; F41.9 Anxiety disorder, unspecified; G47.00 Insomnia, unspecified; K59.00 Constipation, unspecified; F12.90 Cannabis use, unspecified, uncomplicated; Z88.8 Allergy status to other drugs, medicaments and biological substances; Z79.899 Other long term (current) drug therapy
CPT/HCPCS: 80307; 81003

== ENCOUNTER 2024-03-28 16:00 | Inpatient (IN) | payer MEDICAID, OTHER ==
[~2024-03-28] VITALS: Ht 175.3 cm; Wt 107.5 kg
[~2024-03-28 16:00] MED LIST changes: -CARB1DRO24 OU; -CLONIDINE PO; +DIVA-112 PO; -OLAN10 PO; +OLAN5TAB52 PO; -PALI234D IM
[2024-03-28 16:54] LABS: COVID AG,FIA SOURCE NASAL SWAB
[2024-03-28 16:57] LABS: BASOPHILS % (AUTO) 0.7 % (0.0-2.0); EOSINOPHILS % (AUTO) 4.3 % (1.0-6.0); HEMOGLOBIN 14.4 g/dL (13.5-17.5); LYMPHOCYTES # (AUTO) 2.8 K/uL (1.0-4.8); LYMPHOCYTES % (AUTO) 30.6 % (22.0-44.0); MEAN CORPUSCULAR HEMOGLOBIN 30.7 pg (26.0-34.0); MEAN CORPUSCULAR HGB CONC 34.2 G/dL (31.0-37.0); MEAN CORPUSCULAR VOLUME 90 fL (80-100); MONOCYTES # (AUTO) 0.8 K/uL (0.1-1.0); MONOCYTES % (AUTO) 9.2 % (2.0-9.0); NEUTROPHILS % (AUTO) 55.2 % (40.0-70.0); PLATELET COUNT (AUTO) 261 K/uL (150-450); RED BLOOD CELL COUNT(AUTO) 4.68 MIL/uL (4.50-5.90); RED CELL DISTRIBUTION WIDTH 13.9 % (11.5-14.5)
[2024-03-28 17:06] LABS: ANION GAP 8 mmol/L (8-16); CALCIUM, TOTAL 8.7 mg/dL (8.8-10.5); CARBON DIOXIDE 28 mmol/L (22-29); CHLORIDE 103 mmol/L (98-107); CREATININE 1.06 mg/dL (0.60-1.30); GLOMERULAR FILTR. RATE CALC > 60 mL/min (>60); GLUCOSE,RANDOM 144 mg/dL (70-110); POTASSIUM 3.8 mmol/L (3.5-5.1); SODIUM SERUM 139 mmol/L (136-145); UREA NITROGEN, BLOOD 11 mg/dL (7-18)
[2024-03-28 17:10] LABS: SARS-COV2 (COVID) ANTIGEN,FIA Negative (Negative)
[2024-03-28 17:11] LABS: ALANINE AMINOTRANSFERASE 35 U/L (12-78); ALBUMIN 3.9 g/dL (3.4-5.0); ALKALINE PHOSPHATASE 86 U/L (46-116); ASPARTATE AMINOTRANSFERASE 34 U/L (15-37); BILIRUBIN,TOTAL 0.2 mg/dL (0.1-1.0)
[2024-03-28 17:40] LABS: ALCOHOL, BLOOD (SERUM) < 3 mg/dL (0-10)
[2024-03-28 18:26] LABS: ALCOHOL, URINE DRUG SCREEN NEGATIVE (NEGATIVE); AMPHET/METH SCREEN,URINE NEGATIVE (NEGATIVE); BARBITURATE SCREEN, URINE NEGATIVE (NEGATIVE); BENZODIAZEPINES SCREEN,URINE NEGATIVE (NEGATIVE); CANNABINOID SCREEN,URINE NEGATIVE (NEGATIVE); COCAINE SCREEN,URINE NEGATIVE (NEGATIVE); METHADONE SCREEN, URINE NEGATIVE (NEGATIVE); OPIATE SCREEN,URINE NEGATIVE (NEGATIVE); PHENCYCLIDINE SCREEN,URINE NEGATIVE (NEGATIVE)
[2024-03-28] MEDS: HALOPERIDOL LACTATE 5 MG/ML VIAL IM ONE (19:03)
[2024-03-28] MEDS: LORazepam 2 MG/ML VIAL IM ONE (19:03)
[2024-03-29] MEDS ORDERED: HALOPERIDOL 5 MG TABLET PO PRN (05:00)
[2024-03-29] MEDS ORDERED: ZOLPIDEM TARTRATE 10 MG TABLET PO PRN (05:00)
[2024-03-29 05:41] VITALS: BP 135/74; PULSE 83; RESP 17; TEMP 98.7; O2SAT 96
[2024-03-29] MEDS ORDERED: DOCUSATE SODIUM 100 MG CAPSULE PO PRN (06:00)
[2024-03-29] MEDS ORDERED: LOPERAMIDE HCL 2 MG CAPSULE PO PRN (06:00)
[2024-03-29] MEDS ORDERED: ALBUTEROL SULFATE HFA 90 MCG/PUFF 8 GM INHALER IH PRN (06:00)
[2024-03-29] MEDS ORDERED: ACETAMINOPHEN 325 MG TABLET PO PRN (06:00)
[2024-03-29] MEDS ORDERED: CloNIDine HCL 0.1 MG TABLET PO PRN (06:00)
[2024-03-29] MEDS ORDERED: OMEPRAZOLE 20 MG CAPSULE PO PRN (06:00)
[2024-03-29] MEDS ORDERED: IBUPROFEN 600 MG TABLET PO PRN (06:00)
[2024-03-29] MEDS ORDERED: BACITRACIN 28 GM OINTMENT TP PRN (06:00)
[2024-03-29] MEDS ORDERED: MAG HYDROX/ALUMINUM HYD/SIMETH ES 30 ML SUSPENSION UDCUP PO PRN (06:00)
[2024-03-29] MEDS ORDERED: ONDANSETRON HCL 4 MG TABLET PO PRN (06:00)
[2024-03-29] MEDS ORDERED: MAGNESIUM HYDROXIDE SUSPENSION 30 ML UDCUP PO PRN (06:00)
[2024-03-29] MEDS ORDERED: PETROLATUM,WHITE 28 GM JELLY TP PRN (06:00)
[2024-03-29] MEDS ORDERED: BENZOCAINE/MENTHOL LOZENGE PO PRN (06:00)
[2024-03-29 08:36] VITALS: BP 115/61; PULSE 64; RESP 18; TEMP 97.4; O2SAT 97
[2024-03-29] MEDS ORDERED: SERT-158 PO (09:17)
[2024-03-29 20:36] VITALS: BP 127/70; PULSE 88; TEMP 97.3; O2SAT 94
[2024-03-30] MEDS: LORazepam 2 MG TABLET PO PRN (08:12)
[2024-03-30 08:29] VITALS: BP 133/77; PULSE 80; RESP 18; TEMP 98.5; O2SAT 94
[2024-03-30] MEDS: DIVALPROEX SODIUM 500 MG DR TABLET PO SCH (16:02)
[2024-03-30] MEDS: OLANZapine 10 MG TABLET PO SCH (20:03)
[2024-03-30 20:11] VITALS: RESP 2
[2024-03-31] MEDS: SERTRALINE HCL 50 MG TABLET PO SCH (08:08)
[2024-03-31 08:52] VITALS: BP 126/94; PULSE 67; RESP 18; TEMP 97.8; O2SAT 97
[2024-03-31 20:53] VITALS: BP 125/78; PULSE 93; RESP 18; TEMP 98.4; O2SAT 92
[2024-04-01 08:31] VITALS: BP 102/61; PULSE 74; RESP 16; TEMP 97.3; O2SAT 95
[2024-04-01 20:38] VITALS: BP 124/69; PULSE 91; TEMP 98.2; O2SAT 96
[2024-04-02 08:14] VITALS: RESP 18
== END 2024-04-02 16:15 | disposition home or self-care (01) | DRG 750 ==
LOC: EMS 16:00 → B3A 03-29 03:34
PROVIDERS: ADMIT Psychiatry & Neurology Psychiatry; ATTEND Psychiatry & Neurology Psychiatry
DX: F20.9 Schizophrenia, unspecified (principal); R45.851 Suicidal ideations; F41.9 Anxiety disorder, unspecified; Z20.822 Contact with and (suspected) exposure to COVID-19; K59.00 Constipation, unspecified; I10 Essential (primary) hypertension; G47.00 Insomnia, unspecified; F10.930 Alcohol use, unspecified with withdrawal, uncomplicated
CPT/HCPCS: 80053; 80307; 85025; 99291; G0480; J1630; J2060

== ENCOUNTER 2024-04-04 17:33 | Emergency (ER) | payer MEDICAID, OTHER ==
[~2024-04-04] VITALS: Ht 177.8 cm; Wt 97.7 kg
[~2024-04-04 17:33] MED LIST changes: +SERT-158 PO
[2024-04-04 17:51] VITALS: TEMP 96.6
[2024-04-04 20:19] LABS: ALCOHOL, URINE DRUG SCREEN NEGATIVE (NEGATIVE); AMPHET/METH SCREEN,URINE NEGATIVE (NEGATIVE); BARBITURATE SCREEN, URINE NEGATIVE (NEGATIVE); BENZODIAZEPINES SCREEN,URINE NEGATIVE (NEGATIVE); CANNABINOID SCREEN,URINE NEGATIVE (NEGATIVE); COCAINE SCREEN,URINE NEGATIVE (NEGATIVE); METHADONE SCREEN, URINE NEGATIVE (NEGATIVE); OPIATE SCREEN,URINE NEGATIVE (NEGATIVE); PHENCYCLIDINE SCREEN,URINE NEGATIVE (NEGATIVE)
[2024-04-04 20:25] LABS: BASOPHILS % (AUTO) 0.6 % (0.0-2.0); EOSINOPHILS % (AUTO) 1.5 % (1.0-6.0); HEMATOCRIT 42.9 % (41-53); HEMOGLOBIN 14.5 g/dL (13.5-17.5); LYMPHOCYTES # (AUTO) 2.5 K/uL (1.0-4.8); LYMPHOCYTES % (AUTO) 21.7 % (22.0-44.0); MEAN CORPUSCULAR HEMOGLOBIN 30.3 pg (26.0-34.0); MEAN CORPUSCULAR HGB CONC 33.7 G/dL (31.0-37.0); MEAN CORPUSCULAR VOLUME 90 fL (80-100); MONOCYTES % (AUTO) 8.5 % (2.0-9.0); NEUTROPHILS % (AUTO) 67.7 % (40.0-70.0); PLATELET COUNT (AUTO) 254 K/uL (150-450); RED BLOOD CELL COUNT(AUTO) 4.77 MIL/uL (4.50-5.90); WHITE BLOOD COUNT (AUTO) 11.8 K/uL (4.5-11.0)
[2024-04-04 20:34] LABS: ANION GAP 8 mmol/L (8-16); CALCIUM, TOTAL 9.2 mg/dL (8.8-10.5); CARBON DIOXIDE 28 mmol/L (22-29); CHLORIDE 102 mmol/L (98-107); CREATININE 1.07 mg/dL (0.60-1.30); GLOMERULAR FILTR. RATE CALC > 60 mL/min (>60); GLUCOSE,RANDOM 151 mg/dL (70-110); POTASSIUM 3.4 mmol/L (3.5-5.1); SODIUM SERUM 138 mmol/L (136-145); UREA NITROGEN, BLOOD 11 mg/dL (7-18)
[2024-04-04 20:41] LABS: ALANINE AMINOTRANSFERASE 55 U/L (12-78); ALBUMIN 4.2 g/dL (3.4-5.0); ALKALINE PHOSPHATASE 90 U/L (46-116); ASPARTATE AMINOTRANSFERASE 41 U/L (15-37); BILIRUBIN,TOTAL 0.4 mg/dL (0.1-1.0); TOTAL PROTEIN, SERUM 8.4 g/dL (6.4-8.2)
[2024-04-04 20:42] LABS: ALCOHOL, BLOOD (SERUM) < 3 mg/dL (0-10)
[2024-04-04 22:44] VITALS: BP 136/92; PULSE 87; RESP 18
[2024-04-04 23:53] LABS: COVID AG,FIA SOURCE NASAL SWAB
[2024-04-05 00:14] LABS: SARS-COV2 (COVID) ANTIGEN,FIA Negative (Negative)
[2024-04-05] MEDS: OLANZapine 10 MG TABLET PO ONE (01:01)
[2024-04-05] MEDS: LORazepam 1 MG TABLET PO ONE (01:01)
== END 2024-04-05 02:00 | disposition home or self-care (01) ==
LOC: EMS 17:33
DX: F25.9 Schizoaffective disorder, unspecified (principal); F12.90 Cannabis use, unspecified, uncomplicated; F15.90 Other stimulant use, unspecified, uncomplicated; Z20.822 Contact with and (suspected) exposure to COVID-19
CPT/HCPCS: 99283; 87426; 80053; 85025; 36415; 80307; G0480

== ENCOUNTER 2024-04-08 06:30 | Inpatient (IN) | payer MEDICAID, OTHER ==
[~2024-04-08] VITALS: Ht 172.7 cm; Wt 107.0 kg
[2024-04-08 07:59] LABS: BASOPHILS % (AUTO) 0.8 % (0.0-2.0); EOSINOPHILS % (AUTO) 2.5 % (1.0-6.0); HEMOGLOBIN 14.1 g/dL (13.5-17.5); LYMPHOCYTES # (AUTO) 2.5 K/uL (1.0-4.8); LYMPHOCYTES % (AUTO) 27.9 % (22.0-44.0); MEAN CORPUSCULAR HEMOGLOBIN 30.9 pg (26.0-34.0); MEAN CORPUSCULAR HGB CONC 34.5 G/dL (31.0-37.0); MEAN CORPUSCULAR VOLUME 90 fL (80-100); MONOCYTES # (AUTO) 0.8 K/uL (0.1-1.0); MONOCYTES % (AUTO) 8.9 % (2.0-9.0); NEUTROPHILS # (AUTO) 5.4 K/uL (1.8-7.7); NEUTROPHILS % (AUTO) 59.9 % (40.0-70.0); PLATELET COUNT (AUTO) 245 K/uL (150-450); RED BLOOD CELL COUNT(AUTO) 4.57 MIL/uL (4.50-5.90); RED CELL DISTRIBUTION WIDTH 13.5 % (11.5-14.5); WHITE BLOOD COUNT (AUTO) 9.1 K/uL (4.5-11.0)
[2024-04-08 08:09] LABS: ANION GAP 8 mmol/L (8-16); CALCIUM, TOTAL 9.4 mg/dL (8.8-10.5); CARBON DIOXIDE 28 mmol/L (22-29); CHLORIDE 103 mmol/L (98-107); CREATININE 1.02 mg/dL (0.60-1.30); GLOMERULAR FILTR. RATE CALC > 60 mL/min (>60); GLUCOSE,RANDOM 144 mg/dL (70-110); POTASSIUM 3.7 mmol/L (3.5-5.1); SODIUM SERUM 139 mmol/L (136-145); UREA NITROGEN, BLOOD 15 mg/dL (7-18)
[2024-04-08 08:16] LABS: ALANINE AMINOTRANSFERASE 36 U/L (12-78); ALBUMIN 3.8 g/dL (3.4-5.0); ALCOHOL, BLOOD (SERUM) < 3 mg/dL (0-10); ALKALINE PHOSPHATASE 90 U/L (46-116); ASPARTATE AMINOTRANSFERASE 33 U/L (15-37); BILIRUBIN,TOTAL 0.3 mg/dL (0.1-1.0); TOTAL PROTEIN, SERUM 7.9 g/dL (6.4-8.2)
[2024-04-08 08:16] LABS: PH,URINE DRUG SCREEN 7.5 (5.0-8.0)
[2024-04-08 08:31] LABS: ALCOHOL, URINE DRUG SCREEN NEGATIVE (NEGATIVE); AMPHET/METH SCREEN,URINE NEGATIVE (NEGATIVE); BARBITURATE SCREEN, URINE NEGATIVE (NEGATIVE); BENZODIAZEPINES SCREEN,URINE NEGATIVE (NEGATIVE); CANNABINOID SCREEN,URINE NEGATIVE (NEGATIVE); COCAINE SCREEN,URINE NEGATIVE (NEGATIVE); METHADONE SCREEN, URINE NEGATIVE (NEGATIVE); OPIATE SCREEN,URINE NEGATIVE (NEGATIVE); PHENCYCLIDINE SCREEN,URINE NEGATIVE (NEGATIVE)
[2024-04-08] MEDS: LORazepam 2 MG/ML VIAL IM ONE (08:39)
[2024-04-08] MEDS: HALOPERIDOL LACTATE 5 MG/ML VIAL IM ONE (08:39)
[2024-04-08] MEDS ORDERED: HALOPERIDOL 5 MG TABLET PO PRN (09:30)
[2024-04-08 18:58] LABS: COVID AG,FIA SOURCE NASAL SWAB
[2024-04-08 19:28] LABS: SARS-COV2 (COVID) ANTIGEN,FIA Negative (Negative)
[2024-04-08 21:42] VITALS: BP 130/81; PULSE 78; RESP 18; TEMP 98.2
[2024-04-08 21:51] VITALS: BP 130/81; PULSE 92; RESP 18; TEMP 98.4
[2024-04-09] MEDS ORDERED: DOCUSATE SODIUM 100 MG CAPSULE PO PRN (06:00)
[2024-04-09] MEDS ORDERED: LOPERAMIDE HCL 2 MG CAPSULE PO PRN (06:00)
[2024-04-09] MEDS ORDERED: CloNIDine HCL 0.1 MG TABLET PO PRN (06:00)
[2024-04-09] MEDS ORDERED: PETROLATUM,WHITE 28 GM JELLY TP PRN (06:00)
[2024-04-09] MEDS ORDERED: ONDANSETRON HCL 4 MG TABLET PO PRN (06:00)
[2024-04-09] MEDS ORDERED: ALBUTEROL SULFATE HFA 90 MCG/PUFF 8 GM INHALER IH PRN (06:00)
[2024-04-09] MEDS ORDERED: MAGNESIUM HYDROXIDE SUSPENSION 30 ML UDCUP PO PRN (06:00)
[2024-04-09] MEDS ORDERED: IBUPROFEN 600 MG TABLET PO PRN (06:00)
[2024-04-09] MEDS ORDERED: ACETAMINOPHEN 325 MG TABLET PO PRN (06:00)
[2024-04-09] MEDS ORDERED: BENZOCAINE/MENTHOL LOZENGE PO PRN (06:00)
[2024-04-09] MEDS ORDERED: MAG HYDROX/ALUMINUM HYD/SIMETH ES 30 ML SUSPENSION UDCUP PO PRN (06:00)
[2024-04-09] MEDS ORDERED: OMEPRAZOLE 20 MG CAPSULE PO PRN (06:00)
[2024-04-09] MEDS ORDERED: BACITRACIN 28 GM OINTMENT TP PRN (06:00)
[2024-04-09 08:55] VITALS: BP 135/61; PULSE 83; RESP 18; TEMP 97.6; O2SAT 93
[2024-04-09] MEDS: DIVALPROEX SODIUM 500 MG DR TABLET PO SCH (16:57)
[2024-04-09] MEDS: LORazepam 2 MG TABLET PO PRN (19:13)
[2024-04-09] MEDS: OLANZapine 10 MG TABLET PO SCH (20:14)
[2024-04-09] MEDS: ZOLPIDEM TARTRATE 10 MG TABLET PO PRN (20:14)
[2024-04-09 20:42] VITALS: BP 134/77; PULSE 99; TEMP 98.6; O2SAT 94
[2024-04-10 08:15] VITALS: RESP 18
[2024-04-10] MEDS: SERTRALINE HCL 50 MG TABLET PO SCH (08:31)
[2024-04-10 21:07] VITALS: BP 122/73; PULSE 67; TEMP 98; O2SAT 98
[2024-04-11 08:33] VITALS: BP 138/62; PULSE 80; RESP 18; TEMP 97.3; O2SAT 93
[2024-04-11 20:26] VITALS: BP 129/81; PULSE 111; TEMP 97.1; O2SAT 95
[2024-04-12 08:27] VITALS: BP 158/73; PULSE 87; RESP 16; TEMP 97.3; O2SAT 96
[2024-04-12] MEDS ORDERED: OLAN10TA74 PO (15:43)
[2024-04-13] MEDS ORDERED: DIVA-112 PO (06:52)
[2024-04-13] MEDS ORDERED: OLAN10TA74 PO (06:52)
[2024-04-13] MEDS ORDERED: SERT-439 PO (06:52)
== END 2024-04-12 18:45 | disposition home or self-care (01) | DRG 750 ==
LOC: EMS 06:30 → B3A 19:48
PROVIDERS: ADMIT Psychiatry & Neurology Psychiatry; ATTEND Psychiatry & Neurology Psychiatry
DX: F25.1 Schizoaffective disorder, depressive type (principal); R45.850 Homicidal ideations; E66.9 Obesity, unspecified; I10 Essential (primary) hypertension; Z20.822 Contact with and (suspected) exposure to COVID-19; K59.00 Constipation, unspecified; F41.9 Anxiety disorder, unspecified; G47.00 Insomnia, unspecified; Z68.35 Body mass index [BMI] 35.0-35.9, adult
CPT/HCPCS: 80053; 80307; 85025; 87081; 99285; G0480; J1630; J2060

== ENCOUNTER 2024-05-11 12:45 | Inpatient (IN) | payer MEDICAID, OTHER ==
[~2024-05-11] VITALS: Ht 175.3 cm; Wt 111.1 kg
[~2024-05-11 12:45] MED LIST changes: +OLAN10TA74 PO; -OLAN5TAB52 PO; +SERT-439 PO
[2024-05-11] MEDS: DiphenhydrAMINE HCL 25 MG CAPSULE PO ONE (14:01)
[2024-05-11] MEDS: HALOPERIDOL 5 MG TABLET PO ONE (14:01)
[2024-05-11] MEDS: LORazepam 2 MG TABLET PO ONE (14:01)
[2024-05-11 14:32] LABS: GLUCOMETER DEV NAME(LOC) ER.7; GLUCOSE,POINT OF CARE 114 MG/DL (70-110)
[2024-05-11 14:51] LABS: BASOPHILS % (AUTO) 0.6 % (0.0-2.0); EOSINOPHILS % (AUTO) 1.9 % (1.0-6.0); HEMATOCRIT 42.4 % (41-53); HEMOGLOBIN 14.5 g/dL (13.5-17.5); LYMPHOCYTES % (AUTO) 27.2 % (22.0-44.0); MEAN CORPUSCULAR HEMOGLOBIN 30.6 pg (26.0-34.0); MEAN CORPUSCULAR HGB CONC 34.2 G/dL (31.0-37.0); MEAN CORPUSCULAR VOLUME 90 fL (80-100); MONOCYTES # (AUTO) 0.6 K/uL (0.1-1.0); MONOCYTES % (AUTO) 8.1 % (2.0-9.0); NEUTROPHILS # (AUTO) 4.6 K/uL (1.8-7.7); NEUTROPHILS % (AUTO) 62.2 % (40.0-70.0); PLATELET COUNT (AUTO) 272 K/uL (150-450); RED BLOOD CELL COUNT(AUTO) 4.74 MIL/uL (4.50-5.90); WHITE BLOOD COUNT (AUTO) 7.3 K/uL (4.5-11.0)
[2024-05-11 14:52] LABS: ANION GAP 5 mmol/L (8-16); CALCIUM, TOTAL 9.4 mg/dL (8.8-10.5); CARBON DIOXIDE 29 mmol/L (22-29); CHLORIDE 103 mmol/L (98-107); CREATININE 0.92 mg/dL (0.60-1.30); GLOMERULAR FILTR. RATE CALC > 60 mL/min (>60); GLUCOSE,RANDOM 109 mg/dL (70-110); POTASSIUM 3.6 mmol/L (3.5-5.1); SODIUM SERUM 137 mmol/L (136-145); UREA NITROGEN, BLOOD 9 mg/dL (7-18)
[2024-05-11 15:01] LABS: ALCOHOL, BLOOD (SERUM) < 3 mg/dL (0-10)
[2024-05-11 15:30] LABS: COVID AG,FIA SOURCE NASAL SWAB
[2024-05-11 15:57] LABS: SARS-COV2 (COVID) ANTIGEN,FIA Negative (Negative)
[2024-05-11 18:11] LABS: APPEARANCE,URINE CLEAR (CLEAR); BILIRUBIN,URINE NEGATIVE (NEGATIVE); COLOR,URINE COLORLESS (YELLOW); GLUCOSE, URINE (UA) NEGATIVE (NEGATIVE); KETONES,URINE NEGATIVE (NEGATIVE); LEUKOCYTE ESTERASE ,URINE NEGATIVE (NEGATIVE); NITRATE,URINE NEGATIVE (NEGATIVE); OCCULT BLOOD,URINE NEGATIVE (NEGATIVE); PH,URINE 7.5 (5.0-8.0); PROTEIN,URINE NEGATIVE (NEGATIVE); SPECIFIC GRAVITIY, URINE 1.011 (1.003-1.030); UROBILINOGEN,URINE <=1.0 mg/dL (<=1.0)
[2024-05-11 18:23] LABS: ALCOHOL, URINE DRUG SCREEN NEGATIVE (NEGATIVE); AMPHET/METH SCREEN,URINE NEGATIVE (NEGATIVE); BARBITURATE SCREEN, URINE NEGATIVE (NEGATIVE); BENZODIAZEPINES SCREEN,URINE NEGATIVE (NEGATIVE); CANNABINOID SCREEN,URINE NEGATIVE (NEGATIVE); COCAINE SCREEN,URINE NEGATIVE (NEGATIVE); METHADONE SCREEN, URINE NEGATIVE (NEGATIVE); OPIATE SCREEN,URINE NEGATIVE (NEGATIVE); PHENCYCLIDINE SCREEN,URINE NEGATIVE (NEGATIVE)
[2024-05-11 18:33] LABS: PH,URINE DRUG SCREEN 7.5 (5.0-8.0)
[2024-05-11 22:14] VITALS: BP 131/76; PULSE 101; RESP 17; TEMP 97.7; O2SAT 97
[2024-05-12] MEDS ORDERED: PNEUMOCOCCAL VACCINE POLYVALENT 0.5 ML SYRINGE [PPSV23] IM. ONE (04:45)
[2024-05-12 08:00] VITALS: BP 120/66; PULSE 89; RESP 16; TEMP 98.4; O2SAT 96
[2024-05-12] MEDS: SERTRALINE HCL 50 MG TABLET PO SCH (15:37)
[2024-05-12] MEDS: DIVALPROEX SODIUM 500 MG DR TABLET PO SCH (16:02)
[2024-05-12 20:46] VITALS: BP 134/86; PULSE 89; RESP 18; TEMP 98.4; O2SAT 94
[2024-05-12] MEDS: OLANZapine 10 MG TABLET PO SCH (21:00)
[2024-05-13] MEDS: ZOLPIDEM TARTRATE 10 MG TABLET PO PRN (02:22)
[2024-05-13] MEDS: LORazepam 2 MG TABLET PO PRN (02:22)
[2024-05-13 08:04] VITALS: BP 112/52; PULSE 68; RESP 18; TEMP 92.9; O2SAT 96
[2024-05-13 20:59] VITALS: BP 144/77; RESP 16; TEMP 98.2; O2SAT 97
[2024-05-14 08:04] LABS: HEMOGLOBIN A1C 6.6 % (3.8-5.6)
[2024-05-14 08:22] LABS: CHOL/HDL RATIO 3.1 (4.2-7.3); FREE T4 (FREE THYROXINE) 0.97 ng/dL (0.76-1.46); THYROID STIMULATING HORMONE 1.13 uIU/mL (0.36-3.74)
[2024-05-14 08:30] VITALS: RESP 18
[2024-05-14] MEDS: HALOPERIDOL 5 MG TABLET PO PRN (17:19)
[2024-05-14 20:25] VITALS: BP 137/88; PULSE 97; RESP 17; TEMP 98.4; O2SAT 96
[2024-05-15 10:32] VITALS: BP 108/60; PULSE 74; RESP 17; TEMP 91.9; O2SAT 96
== END 2024-05-15 11:45 | disposition home or self-care (01) | DRG 750 ==
LOC: EMS 12:45 → B3A 15:40
PROVIDERS: ADMIT Psychiatry & Neurology Psychiatry; ATTEND Psychiatry & Neurology Psychiatry
DX: F25.1 Schizoaffective disorder, depressive type (principal); E11.9 Type 2 diabetes mellitus without complications; R45.851 Suicidal ideations; E66.9 Obesity, unspecified; Z20.822 Contact with and (suspected) exposure to COVID-19; F41.9 Anxiety disorder, unspecified; G47.00 Insomnia, unspecified; I10 Essential (primary) hypertension; K59.00 Constipation, unspecified; Z79.899 Other long term (current) drug therapy; Z88.8 Allergy status to other drugs, medicaments and biological substances; Z68.36 Body mass index [BMI] 36.0-36.9, adult
CPT/HCPCS: 80048; 80061; 80164; 80307; 81003; 82962; 83036; 84439; 84443; 85025; 87081; G0480